=== PATIENT | male | born 1980 | race Two or more races ===

== ENCOUNTER 2017-07-31 09:51 | Emergency (ER) | payer SELFPAY ==
[~2017-07-31] VITALS: Ht 162.6 cm; Wt 72.6 kg
[2017-07-31] MEDS ORDERED: Surgicel 4in x 8in TOPIC ONE (10:30)
[2017-07-31] MEDS ORDERED: Tetanus/Diptheria/Pertussis Vaccine 0.5ml Syr IM ONE (11:00)
[2017-07-31] MEDS ORDERED: Lidocaine 1% Plain 30 ml INJ ONE (11:20)
[2017-07-31] MEDS ORDERED: Lidocaine 1% MPF 10mg/ml 5ml ONE (11:48)
--- NOTE | 2017-07-31 11:49 | Diagnostic Imaging Report ---
Indication: PAIN, trauma Technique: 3 views right hand Comparison: There is a large soft tissue defect involving the distal aspect of the third finger. There is associated fragmentation and likely traumatic bone loss involving the terminal tuft of the third distal phalanx. No radiopaque foreign body demonstrated No other acute fractures. No dislocations. Joint spaces are preserved. Findings: Positive for traumatic amputation of the soft tissue terminal tuft of the third digit. There is associated fragmentation of the bony terminal tuft and likely traumatic amputation of a portion of the terminal tuft as well. No radiopaque foreign body No other acute osseous injury demonstrated Impression:
[2017-07-31] MEDS ORDERED: Lidocaine 1% MPF 10mg/ml 5ml IM ONE (12:00)
[2017-07-31] MEDS ORDERED: KEFLEX500 MG ORAL (12:29)
[2017-07-31] MEDS ORDERED: NORCO 5-325 TA1 EACH ORAL (12:29)
[2017-07-31] MEDS ORDERED: Morphine Sulfate 4mg/ml Inj IM ONE (12:30)
[2017-07-31 12:45] VITALS: BP 137/88
--- NOTE | 2017-07-31 13:16 | Emergency Room Report ---
History of Present Illness General Chief Complaint: Laceration Source: Patient Present Illness HPI 36-year-old male presents ED status post injury to middle finger. States that he actually cut his finger with a saw today at work. Tetanus unknown. Denies any other injuries. Pain is a throbbing 8/10, nonradiating. No aggravating relieving factors. Denies any other associated symptoms Allergies: Coded Allergies: No Known Allergies (Unverified , 07/31/17) Patient History Past Medical History: DM Past Surgical History: none Pertinent Family History: none Social History: Denies: smoking, alcohol use, drug use Immunizations: UTD Reviewed Nursing Documentation: PMH: Agreed, PSxH: Agreed Nursing Documentation-PMH Hx Diabetes: Yes Review of Systems All Other Systems: negative except mentioned in HPI Physical Exam Vital Signs Date Time Temp Pulse Resp B/P (MAP) Pulse Ox O2 Delivery O2 Flow Rate FiO2 07/31/17 09:53 97.7 75 16 140/97 99 Room Air Sp02 EP Interpretation: reviewed, normal General Appearance: no apparent distress, alert, GCS 15, non-toxic Head: normocephalic, atraumatic Eyes: bilateral eye normal inspection, bilateral eye PERRL ENT: hearing grossly normal, normal pharynx, no angioedema, normal voice Neck: full range of motion, supple/symm/no masses Respiratory: chest non-tender, lungs clear, normal breath sounds, speaking full sentences Cardiovascular #1: regular rate, rhythm, no edema Cardiovascular #2: 2+ carotid (R), 2+ carotid (L), 2+ radial (R), 2+ radial (L) , 2+ dorsalis pedis (R), 2+ dorsalis pedis (L) Gastrointestinal: normal bowel sounds, non tender, soft, non-distended, no guarding, no rebound Rectal: deferred Genitourinary: normal inspection, no CVA tenderness Musculoskeletal: back normal, gait/station normal, normal range of motion, tender - amputation of distal aspect of 3rd finger. bone exposed Neurologic: alert, oriented x3, responsive, motor strength/tone normal, sensory intact, speech normal Psychiatric: judgement/insight normal, memory normal, mood/affect normal, no suicidal/homicidal ideation Reflexes: 3+ bicep (R), 3+ bicep (L), 3+ tricep (R), 3+ tricep (L), 3+ knee (R) , 3+ knee (L) Skin: normal color, no rash, warm/dry, well hydrated Lymphatic: no adenopathy Medical Decision Making Diagnostic Impression: Primary Impression: Amputation finger Qualified Codes: S68.119A - Complete traumatic metacarpophalangeal amputation of unspecified finger, initial encounter ER Course Hospital Course 36-year-old male presents with amputation of the distal aspect of the right middle finger using a saw today Clinical course Patient placed on stretcher. After initial history and physical I ordered tetanus shot, pain meds. Wound irrigated. Digital block applied. There is distal amputation noted. There is bone exposed. Confirmed on x-ray. Discussed with Dr. Angelo Cartwright (plastics); he recommended loose stitches to approximate the wounds, antibiotics and send him to his office immediately Anesthesia provided with lidocaine. Stitching placed. However the distal aspect cannot be approximated because there was too much tissue gone and bony exposure. Covered with Xeroform and gauze Given Ancef in ED. Given tetanus. Diagnosis - amputation finger Stable and discharged with prescriptions for Keflex, [place]. Given referral/ instructions to go to Dr Cartwright's office immediately from here. f/u with PMD. return to ED if symptoms recur/worsen Other X-Ray Diagnostic Results Other X-Ray Diagnostic Results : X-Ray ordered: R hand # of Views/Limited Vs Complete: 3 View Indication: Pain EP Interpretation: Yes Interpretation: no dislocation, no fractures, other - traumatic amputation of soft tissue terminal tuft of 3rd digit. fragmentation of bony terminal tuft Impression: Other - amputation Electronically Signed by: Electronically signed by Jae Garcia MD Last Vital Signs Date Time Temp Pulse Resp B/P (MAP) Pulse Ox O2 Delivery O2 Flow Rate FiO2 07/31/17 12:45 82 16 137/88 99 Room Air 07/31/17 12:45 98.0 Status: improved Disposition: HOME, SELF-CARE Condition: Stable Scripts Hydrocodone Bit/Acetaminophen 5-325* (NORCO 5-325*) 1 Each Tablet 1 TAB ORAL Q6H Y for For Pain, #10 TAB 0 Refills Prov: JAE GARCIA M.D. 07/31/17 Cephalexin* (KEFLEX*) 500 Mg Capsule 500 MG ORAL Q6H, #28 CAP 0 Refills Prov: JAE GARCIA M.D. 07/31/17 Referrals: Angelo Cartwright M.D. Patient Instructions: Traumatic Finger Amputation JAE GARCIA M.D. Jul 31, 2017 13:16
== END 2017-07-31 12:45 | disposition home or self-care (01) ==
LOC: EMR 10:49
DX: S68.122A Partial traumatic metacarpophalangeal amputation of right middle finger, initial encounter (principal); W27.0XXA Contact with workbench tool, initial encounter; Y92.89 Other specified places as the place of occurrence of the external cause; Z23 Encounter for immunization; E11.9 Type 2 diabetes mellitus without complications
CPT/HCPCS: 73130; 90471; 90715; 96372; 99284; J0690; J2270